=== PATIENT | female | born 2000 | race Caucasian/White ===

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

== ENCOUNTER 2021-06-27 17:06 | Emergency (ER) | payer SELFPAY ==
--- NOTE | 2021-06-27 18:15 | XR_ITS ---
PROCEDURE INFORMATION: Exam: XR Chest Exam date and time: 06/27/2021 6:15 PM Age: 20 years old Clinical indication: Cough and other: Congestion; Additional info: Chest congestion TECHNIQUE: Imaging protocol: XR of the chest. Views: 2 views. COMPARISON: CR CXR CHEST(2 VIEWS-NOT PORTABLE) 03/30/2016 8:16 PM FINDINGS: Lungs: Unremarkable. No consolidation. Pleural spaces: Unremarkable. No pleural effusion. No pneumothorax. Heart/Mediastinum: Unremarkable. No cardiomegaly. Bones/joints: Unremarkable. IMPRESSION: No acute findings.
[2021-06-27 18:25] VITALS: BP 119/88; PULSE 89; RESP 19; TEMP 37.1; O2SAT 99; BMI 15.0
--- NOTE | 2021-06-27 18:47 | HMH.EDUTC ---
[facility] [place] Clinical Impression: Strep throat Acute bronchitis Qualifiers: Bronchitis organism: unspecified organism Qualified Code(s): J20.9 - Acute bronchitis, unspecified Disposition: Home, Self-Care Condition on Discharge: Good Instructions: Acute Bronchitis, DI for Acute Bronchitis Additional Instructions: Drink plenty of fluids. Take tylenol or ibuprofen for pain or fever. Take the medications as directed. Follow up with your regular doctor. GO TO THE ER FOR ANY WORSENING SYMPTOMS The cough medication (promethazine dm) will make you drowsy, so don't drive or operate heavy machinery after taking it. Prescriptions: Promethazine/Dextromethorphan [Promethazine-Dm Syrup] 5 ml PO Q6HP PRN #240 ml PRN Reason: Cough Transmission Status: Received by [facility] #[id number] Cefdinir [Cefdinir 250mg/5ml Oral Susp] 250 mg PO BID 10 Days #100 ml Transmission Status: Received by [facility] #[id number] predniSONE [Prednisone 20mg Tab] 20 mg PO BID 5 Days #5 tab Transmission Status: Received by [facility] #[id number] Referrals: Crow Rodriguez [Primary Care Provider] - Time of Disposition: 19:42 Medical Decision Making - Medical Records Medical records reviewed: No: I reviewed the patient's medical records. - Freddy Inquiry Pt receiving controlled substance: No Vital Signs: 06/27/21 18:25 06/27/21 19:43 Temperature 98.7 F 98.7 F Temperature Source Oral Pulse Rate 89 Pulse Rate [Right Brachial] 89 Respiratory Rate 19 19 Blood Pressure 119/88 Blood Pressure [Right Arm] 119/88 Blood Pressure Mean [Right Arm] 98 Blood Pressure Source [Right Arm] Automatic Cuff Blood Pressure Position [Right Arm] Sitting 02 Sat by Pulse Oximetry 99 Oxygen Delivery Method Room Air - Lab Data Lab results reviewed: Yes: I reviewed the patient's lab results. Orders (Tests/Meds): ED MEDICATIONS Discontinued Medications Generic Name Dose Route Start Last Admin Trade Name Freq PRN Reason Stop Dose Admin Ceftriaxone Sodium 1 gm 06/27/21 19:33 06/27/21 19:40 Ceftriaxone 1gm Vial IM 06/27/21 19:34 1 gm ONCE ONE Administration Lidocaine HCl 0 ml 06/27/21 19:33 06/27/21 19:40 Lidocaine 1% 5ml Pf Vial IM 06/27/21 19:34 2 ml ONCE ONE Administration [facility] [place] - General Stated complaint: possible pneumonia Time Seen by Provider: 06/27/21 18:47 Mode of Arrival: Ambulatory Source of Information: Patient Limitations: No Limitations Description of Symptoms (Recalled from Triage Doc. by RN): PATIENT C/O RIB PAIN, COUGH, SOA, AND CONGESTION. REPORTS SHE WAS SEEN WEDNESDAY BUT COUGH IS GETTING WORSE HEENT Symptoms (Recalled from RN notes): No Resp Symptoms (Recalled from RN notes): Yes Skin Symptoms (Recalled from RN notes): No MS Symptoms (Recalled from RN notes): No Functional Status (Recalled from RN notes): WNL - History of Present Illness Provider Complaint: She is back to be rechecked. She was here 4 days ago and diagnosed with strep throat and started on amoxicillin. Since then her sore throat has got better, but she has began to cough and have chest tightness. - Related Data Home Medications Medication Instructions Recorded Confirmed Ethinyl Estradiol/Drospirenone 1 tab PO DAILY 08/22/19 08/22/19 [Drospirenone-Ee 3-0.02 mg Tab] Previous Rx's Medication Instructions Recorded Azithromycin [Z-Ek 250mg Tab*] 250 mg PO UD DOSE PK #6 tab 08/23/19 Ondansetron [Zofran 4mg ODT] 4 mg PO Q8HP PRN #10 tab.rapdis 08/23/19 Oseltamivir Phosphate [Tamiflu 75 mg PO BID #10 cap 08/23/19 75mg Capsule] Cefdinir [Cefdinir 250mg/5ml Oral 250 mg PO BID 10 Days #100 ml 06/27/21 Susp] Promethazine/Dextromethorphan 5 ml PO Q6HP PRN #240 ml 06/27/21 [Promethazine-Dm Syrup] predniSONE [Prednisone 20mg 20 mg PO BID 5 Days #5 tab 06/27/21 Tab] Allergies Allergy/AdvReac Type Severity Reaction Status Date / Time No Known Al
[2021-06-27 19:43] VITALS: BP 119/88; PULSE 89; RESP 19; TEMP 37.1; O2SAT 99
== END 2021-06-27 19:51 | disposition home or self-care (01) ==
PROVIDERS: Emergency Provider Nurse Practitioner Family; PCP Pediatrics
DX: J02.0 Streptococcal pharyngitis (principal); J20.9 Acute bronchitis, unspecified
CPT/HCPCS: 71046; 96372; 99202; G0463

== ENCOUNTER 2021-07-28 14:03 | Emergency (ER) | payer SELFPAY ==
[2021-07-28 15:35] VITALS: BP 119/71; PULSE 73; RESP 20; TEMP 37; O2SAT 100; BMI 16.4
[2021-07-28 15:57] LABS: UTC Influenza A Antigen Positive (Negative); UTC Influenza B Antigen Negative (Negative)
[2021-07-28 15:58] LABS: UTC Strep Screen (Rapid) Negative (Negative)
--- NOTE | 2021-07-28 16:02 | HMH.EDUTC ---
[facility] – [place] Disposition Clinical Impression: Influenza A Disposition: Home, Self-Care Condition on Discharge: Good Instructions: DI for Influenza -- Adult Additional Instructions: Drink plenty of fluids. Take tylenol or ibuprofen for pain or fever. Take the medications as directed. Follow up with your regular doctor. GO TO THE ER FOR ANY WORSENING SYMPTOMS The cough medication (promethazine dm) will make you drowsy, so don't drive or operate heavy machinery after taking it. Prescriptions: Brompheniramine/Pseudoephed/Dm [Bromfed Dm Cough Syrup] 5 ml PO Q6HP PRN #240 ml PRN Reason: Cough Transmission Status: Pending to [facility] # Ondansetron [Zofran 4mg ODT] 4 mg PO Q8HP PRN #20 tab PRN Reason: Nausea Transmission Status: Pending to [facility] # Oseltamivir Phosphate [Tamiflu 75mg Capsule] 75 mg PO BID #10 cap Transmission Status: Pending to [facility] # Referrals: Crow Rodriguez [Primary Care Provider] - Forms: Work/School Release Time of Disposition: 16:28 Medical Decision Making - Medical Records Medical records reviewed: No: I reviewed the patient's medical records. - Freddy Inquiry Pt receiving controlled substance: No Vital Signs: 07/28/21 15:35 Temperature 98.6 F Temperature Source Oral Pulse Rate [Left Brachial] 73 Respiratory Rate 20 Blood Pressure [Left Arm] 119/71 Blood Pressure Mean [Left Arm] 87 Blood Pressure Source [Left Arm] Automatic Cuff Blood Pressure Position [Left Arm] Sitting 02 Sat by Pulse Oximetry 100 Oxygen Delivery Method Room Air - Lab Data Lab results reviewed: Yes: I reviewed the patient's lab results. Lab Results 07/28/21 15:36: Strep Scn [facility] Negative 07/28/21 15:37: Influenza Type A Ag Positive A, Influenza Type B Ag Negative Orders (Tests/Meds): ORDERS Category Date Time Status Strep Screen Confirmation Routine Micro 07/28/21 15:36 Received [facility] [place] HPI - General Stated complaint: flu exposure/symptoms Time Seen by Provider: 07/28/21 16:03 Mode of Arrival: Ambulatory Source of Information: Patient Limitations: No Limitations Description of Symptoms (Recalled from Triage Doc. by RN): PATIENT C/O CHILLS, BODY ACHES, SORE THROAT, NAUSEA, VOMITING, DIARRHEA, CONGESTION AND FEVER SINCE YESTERDAY HEENT Symptoms (Recalled from RN notes): Yes Resp Symptoms (Recalled from RN notes): Yes Skin Symptoms (Recalled from RN notes): No MS Symptoms (Recalled from RN notes): No Functional Status (Recalled from RN notes): WNL - History of Present Illness Provider Complaint: She states that started feeling bad on Wednesday. She has had chilling, cough, chest congestion, scratchy sore throat and she has felt very bad. She denies shortness of breath. - Related Data Previous Rx's Medication Instructions Recorded Brompheniramine/Pseudoephed/Dm 5 ml PO Q6HP PRN #240 ml 07/28/21 [Bromfed Dm Cough Syrup] Ondansetron [Zofran 4mg ODT] 4 mg PO Q8HP PRN #20 tab 07/28/21 Oseltamivir Phosphate [Tamiflu 75 mg PO BID #10 cap 07/28/21 75mg Capsule] Allergies Allergy/AdvReac Type Severity Reaction Status Date / Time No Known Allergies Allergy Verified 08/22/19 20:27 - Worker's Comp Is this a Worker's Comp case?: No [facility] History - Hepatitis A Screen Drug use history?: No High risk sexual behaviors?: No History of sexually transmitted infection?: No Currently employed?: No Childcare worker?: No Do you have indoor plumbing?: Yes Do you have electricity?: Yes Attestation statement:: This patient has been screened for Hepatitis A risk factors. I have reviewed the patient's past medical history: Yes Laterality Cases: Bilateral: Tonsillectomy - Social History Alcohol Intake: never Occupational Status: student ROS Obtained: Yes All systems reviewed & no additional complaints - Constitutional Constitutional: Reports as per HPI - Eyes Eyes: Denies eye disc
[2021-07-28 16:29] VITALS: BP 119/71; PULSE 73; RESP 20; TEMP 37; O2SAT 100
== END 2021-07-28 16:30 | disposition home or self-care (01) ==
PROVIDERS: Emergency Provider Nurse Practitioner Family; PCP Pediatrics
DX: J10.1 Influenza due to other identified influenza virus with other respiratory manifestations (principal)
CPT/HCPCS: 87804; 87880; 99203; G0463

== ENCOUNTER → 2021-08-06 09:32 | Outpatient (CLI) | payer SELFPAY | LOC: HMH.CTC 09:33 | PROVIDERS: Visit Provider Nurse Practitioner | DX: Z20.822 Contact with and (suspected) exposure to COVID-19 (principal) | CPT/HCPCS: C9803; U0003; U0005 ==

== ENCOUNTER → 2021-08-11 14:43 | Outpatient (CLI) | payer OTHER, SELFPAY | PROVIDERS: Visit Provider Nurse Practitioner | DX: Z20.822 Contact with and (suspected) exposure to COVID-19 (principal) | CPT/HCPCS: C9803; U0003; U0005 ==

== ENCOUNTER → 2021-10-21 15:30 | Outpatient (CLI) | payer SELFPAY | LOC: RT 15:31 | PROVIDERS: PCP Nurse Practitioner Family; Visit Provider Nurse Practitioner Family | DX: R42 Dizziness and giddiness (principal) | CPT/HCPCS: 93225; 93226 ==

== ENCOUNTER 2021-12-09 18:53 | Emergency (ER) | payer SELFPAY ==
[2021-12-09 19:04] VITALS: BP 122/87; PULSE 99; RESP 16; TEMP 37.1; O2SAT 100; BMI 16.4
--- NOTE | 2021-12-09 19:08 | HMH.EDGENADL ---
ED Disposition Clinical Impression: Left flank pain Sinusitis Qualifiers: Sinusitis location: maxillary Chronicity: acute Recurrence: non-recurrent Qualified Code(s): J01.00 - Acute maxillary sinusitis, unspecified Disposition: Home, Self-Care Condition on Discharge: Good Instructions: Sinusitis, DI for Flank Pain Additional Instructions: folow up PCP as needed, return here for worse Prescriptions: Cefdinir [Omnicef 300mg Capsule] 300 mg PO BID #20 cap Transmission Status: Received by [facility] #[id number] Referrals: Provider,Referral, [Primary Care Provider] - - Critical Care Critical Care Time: No Attestation: On 12/09/21, the high probability of a clinically significant, sudden or life threatening deterioration of the following system(s) required my full and direct attention, intervention and personal management. The time I documented below is in addition to time spent performing reported procedures but includes the following listed in this critical care notation. Medical Decision Making - Medical Records Medical records reviewed: Yes: I reviewed the patient's medical records. - Freddy Inquiry Pt receiving controlled substance: No Vital Signs: 12/09/21 19:04 Temperature 98.7 F Temperature Source Oral Pulse Rate [Left Radial] 99 H Respiratory Rate 16 Blood Pressure [Right Arm] 122/87 Blood Pressure Mean [Right Arm] 98 Blood Pressure Source [Right Arm] Automatic Cuff Blood Pressure Position [Right Arm] Sitting 02 Sat by Pulse Oximetry 100 Oxygen Delivery Method Room Air - Lab Data Lab Results 12/09/21 19:13: Urine Color Yellow, Urine Appearance Clear, Urine pH 5.5, Ur Specific [place] 1.025, Urine Protein Negative, Urine Glucose (UA) Negative, Urine Ketones Negative, Urine Blood Negative, Urine Nitrate Negative, Urine Bilirubin Negative, Urine Urobilinogen 0.2, Ur Leukocyte Esterase Negative, Urine RBC None, Urine WBC Occasional, Ur Squamous Epith Cells 3-5, Urine Bacteria Trace 12/09/21 19:13: Urine HCG, Qual Negative General Adult HPI - General Stated complaint: Fever,Sore throat,Stomach Pressure Time Seen by Provider: 12/09/21 19:08 - History of Present Illness HPI narrative: sore throat, congestion, sinus pain, also left flank pain this am, better now lnmp>4wks ago Onset (ago): day(s) Radiation: non-radiation Severity: moderate Quality: aching Consistency: constant, intermittent Exacerbating factors: none Associated symptoms: denies other symptoms - Related Data Previous Rx's Medication Instructions Recorded Brompheniramine/Pseudoephed/Dm 5 ml PO Q6HP PRN #240 ml 07/28/21 [Bromfed Dm Cough Syrup] Ondansetron [Zofran 4mg ODT] 4 mg PO Q8HP PRN #20 tab 07/28/21 Oseltamivir Phosphate [Tamiflu 75 mg PO BID #10 cap 07/28/21 75mg Capsule] Cefdinir [Omnicef 300mg Capsule] 300 mg PO BID #20 cap 12/09/21 Allergies Allergy/AdvReac Type Severity Reaction Status Date / Time No Known Allergies Allergy Verified 08/22/19 20:27 [facility] History - Hepatitis A Screen Attestation statement:: This patient has been screened for Hepatitis A risk factors. Laterality Cases: Bilateral: Tonsillectomy - Social History Alcohol Intake: never Occupational Status: student ROS Obtained: Yes All systems reviewed & no additional complaints Physical Exam - General General appearance: alert, in no apparent distress - Head Head exam: atraumatic, normocephalic - Eye Eye exam: Present: normal appearance, PERRL, EOMI - ENT ENT exam: Present: normal exam, normal oropharynx, mucous membranes moist - Neck Neck exam: Present: normal inspection, full ROM - Chest Chest inspection: Present: normal inspection, symmetric chest wall rise - Respiratory Respiratory exam: Present: normal lung sounds bilaterally. Absent: respiratory distress, wheezes - Cardiovascular Cardiovascular exam: Present: regular rate, normal rhythm. Absent: tachycardia -
--- NOTE | 2021-12-09 19:17 | PC.NURSE ---
URINE COLLECTED AND SENT TO LAB. NO ACUTE DISTRESS NOTED.
[2021-12-09 19:18] LABS: Microscopic, Urine URINE MICROSCOPIC (MICROSCOPIC)
[2021-12-09 19:31] LABS: Appearance,Urine CLEAR (Clear); Bilirubin,Urine Negative (Negative); Blood, Urine Negative (Negative); Color,Urine YELLOW (Yellow); Glucose,Urine (UA) Negative (Negative); Ketones,Urine Negative (Negative); Leukocyte Esterase,Urine Negative (Negative); Nitrate,Urine Negative (Negative); PH,Urine 5.5 (5.0-8.5); Protein,Urine Negative (Negative); Specific Gravity, Urine 1.025 (1.005-1.030); Urine Pregnancy, HCG Qual. Negative (Negative); Urobilinogen,Urine 0.2 EU/dl (0.2)
[2021-12-09 19:57] LABS: Bacteria,Urine Trace /lpf; WBC,Urine Occasional #/hpf (0-3)
[2021-12-09 20:06] VITALS: BP 124/78; PULSE 89; RESP 16; TEMP 37.1; O2SAT 100
== END 2021-12-09 20:13 | disposition home or self-care (01) ==
PROVIDERS: Emergency Provider Emergency Medicine
DX: M54.9 Dorsalgia, unspecified (principal); J01.00 Acute maxillary sinusitis, unspecified
CPT/HCPCS: 81001; 81025; 99282

== ENCOUNTER 2022-07-03 11:55 | Emergency (ER) | payer SELFPAY ==
[2022-07-03 12:05] VITALS: BP 116/70; PULSE 74; RESP 19; O2SAT 100; BMI 17.9
--- NOTE | 2022-07-03 12:18 | EXP.UTC ---
Discharge Plan Disposition Patient Disposition: Home, Self-Care Condition: Good Prescriptions Prescriptions: New prednisone [prednisone] 20 mg tablet 20 mg PO BID 5 Days Qty: 10 0RF ondansetron 8 mg Tablet,Disintegrating 8 mg PO TID PRN (Reason: Nausea) Qty: 30 0RF bljfybpwaptjjfj-ecvhnpkcr-SC [Bromfed DM] 2-30-10 mg/5 mL Syrup 5 ml PO Q4H PRN (Reason: Cough) Qty: 120 0RF No Action oseltamivir 75 MG capsule 75 mg PO BID Qty: 10 0RF sighjtuhohhkoox-veojovgod-NR 118 ML syrup 5 ml PO Q6HP PRN (Reason: Cough) Qty: 240 0RF ondansetron 4 MG tablet,disintegrating 4 mg PO Q8HP PRN (Reason: Nausea) Qty: 20 0RF cefdinir 300 MG capsule 300 mg PO BID Qty: 20 0RF Referrals Follow up/Referrals: Crow Rodriguez [Primary Care Provider] - See instructions Clinical Impressions Clinical Impression: Acute viral syndrome Instructions Patient Instructions: DI for Viral Upper Respiratory Infection -- Adult Discharge ED Provider: Dyan Cohn [facility] [place] General Stated complaint: Sore throat, diarreah, vomitting, bodyaches Time Seen by Provider: 07/03/22 12:19 History of Present Illness Provider Complaint: 1 week history of sore throat, losing voice, congestion, cough, body aches, vomiting and diarrhea. No fever. Onset (ago): week(s) (1) Relieving factors: none Exacerbating factors: none Treatments prior to arrival: none Related Data Previous Rx's Medication Instructions Recorded buenyivbvnwsfei-ozckitxljmqtofw-IG 5 ml PO Q6HP PRN Cough #240 mL 07/28/21 2 mg-30 mg-10 mg/5 mL oral syrup ondansetron 4 mg disintegrating 4 mg PO Q8HP PRN Nausea #20 tabs 07/28/21 tablet oseltamivir 75 mg capsule 75 mg PO BID #10 caps 07/28/21 cefdinir 300 mg capsule 300 mg PO BID #20 caps 12/09/21 wurfkiqspsrjpmb-hbnnpfexxfzkpuc-EB 5 ml PO Q4H PRN Cough #120 mL 07/03/22 2 mg-30 mg-10 mg/5 mL oral syrup (Bromfed DM) ondansetron 8 mg disintegrating 8 mg PO TID PRN Nausea #30 tabs 07/03/22 tablet prednisone 20 mg tablet 20 mg PO BID 5 days #10 tabs 07/03/22 Allergies Allergy/AdvReac Type Severity Reaction Status Date / Time No Known Allergies Allergy Verified 08/22/19 20:27 [facility] Disclaimer: The information contained in this section may have been updated after the patient was seen, as this information can be updated by other users. Surgical History (Updated 07/03/22 @ 12:30 by Dayanara Jorgensen RN) History of tonsillectomy Social History Smoking Status: Smoker, status unknown alcohol intake: never current occupational status: student Travel in the last 8 weeks: None ROS Obtained: Yes All systems reviewed & no additional complaints except as documented Constitutional Constitutional: Reports headache(s) and Reports malaise ENT Ears, Nose, Mouth, and Throat: Reports headache(s), Reports nasal congestion and Reports sore throat Respiratory Respiratory: Reports cough Gastrointestinal Gastrointestingal: Reports diarrhea and vomiting Neurologic Neurologic: Reports headache(s) Physical Exam General General appearance: alert and in no apparent distress Head Head exam: atraumatic, normocephalic and normal inspection Eye Eye exam: Present normal appearance, PERRL and EOMI ENT ENT exam: Present normal exam, normal oropharynx, mucous membranes moist, TM's normal bilaterally and normal external ear exam Neck Neck exam: Present normal inspection, full ROM and trachea midline; Absent meningismus or lymphadenopathy Chest Chest inspection: Present normal inspection and symmetric chest wall rise; Absent tenderness Respiratory Respiratory exam: Present normal lung sounds bilaterally; Absent respiratory distress Cardiovascular Cardiovascular exam: Present regular rate and normal rhythm; Absent JVD Abdominal Exam Abdominal exam: Present soft and normal bowel sounds; Absent distention, tenderness or guarding Extremities Exam Extremities exam: Present normal inspect
[2022-07-03 12:23] LABS: UTC Strep Screen (Rapid) Negative (Negative)
[2022-07-03 12:53] VITALS: BP 116/70; PULSE 74; RESP 19; TEMP 36.7; O2SAT 100
== END 2022-07-03 12:25 | disposition home or self-care (01) ==
PROVIDERS: Emergency Provider Physician Assistant; PCP Pediatrics
DX: B34.9 Viral infection, unspecified (principal)
CPT/HCPCS: 87275; 87276; 87880; 99212; G0463

== ENCOUNTER 2022-09-10 17:55 | Emergency (ER) | payer SELFPAY ==
[2022-09-10 18:10] VITALS: BP 130/82; PULSE 88; RESP 20; TEMP 36.8; O2SAT 100; BMI 17.6
--- NOTE | 2022-09-10 18:20 | EXP.UTC ---
Discharge Plan Disposition Patient Disposition: Home, Self-Care Condition: Good Prescriptions Prescriptions: No Action prednisone [prednisone] 20 mg tablet 20 mg PO BID 5 Days Qty: 10 0RF ondansetron 8 mg Tablet,Disintegrating 8 mg PO TID PRN (Reason: Nausea) Qty: 30 0RF oafefikamfysniy-zcdeadejm-VC [Bromfed DM] 2-30-10 mg/5 mL Syrup 5 ml PO Q4H PRN (Reason: Cough) Qty: 120 0RF oseltamivir 75 MG capsule 75 mg PO BID Qty: 10 0RF jonthlzhjpzfzer-lgblblejo-VG 118 ML syrup 5 ml PO Q6HP PRN (Reason: Cough) Qty: 240 0RF ondansetron 4 MG tablet,disintegrating 4 mg PO Q8HP PRN (Reason: Nausea) Qty: 20 0RF cefdinir 300 MG capsule 300 mg PO BID Qty: 20 0RF Referrals Follow up/Referrals: Crow Rodriguez [Primary Care Provider] - See instructions Activity Restrictions/Add. Instructions Additional Instructions/Restrictions: Follow up with Family Doctor or OBGYN if you do not start your menstrual cycle or if you continue to have symptoms Return if needed Clinical Impressions Clinical Impression: Encounter for test with result negative Stand Alone Forms Stand Alone Forms: Work/School Release Discharge ED Provider: Nikki Cowan [facility] General Stated complaint: cramping, Mode of Arrival: Ambulatory Source of Information: Patient Limitations: No Limitations Time Seen by Provider: 09/10/22 18:21 Description of Symptoms (Recalled from Triage Doc. by RN): PATIENT REPORTS LIGHT BLEEDING, CRAMPING, AND HEADACHE SINCE WEDNESDAY. REQUESTING TEST HEENT Symptoms (Recalled from RN notes): No Resp Symptoms (Recalled from RN notes): No Skin Symptoms (Recalled from RN notes): No MS Symptoms (Recalled from RN notes): No Functional Status (Recalled from RN notes): WNL History of Present Illness Provider Complaint: Patient states that she should have been starting her period today but on Wednesday she had a little cramping and light bleeding and it stopped then the same on Wednesday and she has taken 2 home tests and thinks she may have seen a faint line so she came in here today requesting test Related Data Previous Rx's Medication Instructions Recorded smxbdzibdxcwonw-mamehtwxwxzvtym-AQ 5 ml PO Q6HP PRN Cough #240 mL 07/28/21 2 mg-30 mg-10 mg/5 mL oral syrup ondansetron 4 mg disintegrating 4 mg PO Q8HP PRN Nausea #20 tabs 07/28/21 tablet oseltamivir 75 mg capsule 75 mg PO BID #10 caps 07/28/21 cefdinir 300 mg capsule 300 mg PO BID #20 caps 12/09/21 lixgwosdtbznmnr-ecplmikabhzukca-HQ 5 ml PO Q4H PRN Cough #120 mL 07/03/22 2 mg-30 mg-10 mg/5 mL oral syrup (Bromfed DM) ondansetron 8 mg disintegrating 8 mg PO TID PRN Nausea #30 tabs 07/03/22 tablet prednisone 20 mg tablet 20 mg PO BID 5 days #10 tabs 07/03/22 Allergies Allergy/AdvReac Type Severity Reaction Status Date / Time No Known Allergies Allergy Verified 08/22/19 20:27 Worker's Comp Is this a Worker's Comp case?: No [facility] Disclaimer: The information contained in this section may have been updated after the patient was seen, as this information can be updated by other users. Surgical History (Updated 07/03/22 @ 12:30 by Dayanara Jorgensen RN) History of tonsillectomy Social History (Updated 07/03/22 @ 13:14 by CARRIE Veloz) Smoking Status: Smoker, status unknown alcohol intake: never current occupational status: student Travel in the last 8 weeks: None ROS Obtained: Yes All systems reviewed & no additional complaints except as documented and Yes Systems reviewed as appropriate & no additional complaints except as documented Constitutional Constitutional: Reports system reviewed and no additional complaints, except as documented and Reports as per HPI ENT Ears, Nose, Mouth, and Throat: Reports system reviewed and no additional complaints, except as documented and Reports as per HPI Cardiovascular Cardiovascular: Reports system reviewed and n
[2022-09-10 19:00] LABS: HCG Qualitative, Serum Negative (Negative)
[2022-09-10 19:05] VITALS: BP 130/82; PULSE 88; RESP 20; TEMP 36.8; O2SAT 100
[2022-09-10 19:07] LABS: UTC Pregnancy Test, Urine Negative (Negative)
== END 2022-09-10 19:07 | disposition home or self-care (01) ==
PROVIDERS: Emergency Provider Nurse Practitioner; PCP Pediatrics
DX: Z32.02 Encounter for pregnancy test, result negative (principal)
CPT/HCPCS: 81025; 84703; 99212; G0463

== ENCOUNTER 2022-11-21 13:20 | Emergency (ER) | payer SELFPAY ==
[2022-11-21 13:21] VITALS: BP 126/91; PULSE 83; RESP 17; TEMP 36.9; O2SAT 100; BMI 16.9
[2022-11-21 13:30] VITALS: BP 110/73; PULSE 83; O2SAT 100
[2022-11-21 13:31] LABS: Microscopic, Urine URINE MICROSCOPIC (MICROSCOPIC)
[2022-11-21 13:32] LABS: Appearance,Urine CLEAR (Clear); Bilirubin,Urine Negative (Negative); Blood, Urine Negative (Negative); Color,Urine YELLOW (Yellow); Glucose,Urine (UA) Negative (Negative); Ketones,Urine Negative (Negative); Leukocyte Esterase,Urine Negative (Negative); Nitrate,Urine Negative (Negative); Protein,Urine Negative (Negative); Urobilinogen,Urine 0.2 EU/dl (0.2)
--- NOTE | 2022-11-21 13:39 | PC.NURSE ---
DR FARRELL AT BEDSIDE
--- NOTE | 2022-11-21 13:41 | PC.NURSE ---
PT MEDICATED PER EMAR. WARM BLANKET PROVIDED
[2022-11-21 13:42] LABS: Bacteria,Urine Trace /lpf; Squamous Epithelial Cell,Urine Occasional #/hpf (0-5)
[2022-11-21 13:46] LABS: Basophils % 0.4 % (0.1-2.0); Eosinophils # 0.1 K/mm3 (0.0-0.4); Eosinophils % 1.1 % (0.1-12.0); Hematocrit 39.8 % (37.0-47.0); Hemoglobin 13.2 g/dL (12.2-16.2); Lymphocytes # 1.8 K/mm3 (0.7-4.5); Lymphocytes % 22.7 % (10-50); Mean Corpuscular HGB Conc 33.1 g/dL (31.8-35.4); Mean Corpuscular Hemoglobin 27.9 pg (27.0-31.2); Mean Corpuscular Volume 84.3 fl (81-99); Mean Platelet Volume 7.8 fl (7.4-10.4); Monocytes # 0.5 K/mm3 (0.1-1.0); Monocytes % 5.6 % (1.7-9.3); Neutrophils # 5.6 K/mm3 (1.8-7.8); Neutrophils % 70.1 % (37.0-80.0); Platelet Count 276 K/mm3 (142-424); Red Blood Count 4.72 M/mm3 (4.20-5.40); Red Cell Distribution Width 14.5 % (11.5-17.5)
[2022-11-21 13:53] LABS: Chloride 100 mmol/L (98-107)
[2022-11-21 13:54] LABS: Potassium 4.2 mmoL/L (3.5-5.1); Sodium 139 mmol/L (136-145)
[2022-11-21 13:56] LABS: Alanine Aminotransferase 19 U/L (12-78); Alkaline Phosphatase 77 U/L (38-126); Anion Gap 18.2 mEq/L (5-15); Aspartate Amino Transferase 32 U/L (14-36); Bilirubin,Total 0.5 mg/dl (0.2-1.3); Blood Urea Nitrogen 12 mg/dl (7-17); Carbon Dioxide 25 mmol/L (22.0-30.0); Creatinine Clearance Estimated 72 mL/min (50-200); Estimated Glomerular Filt Rate 91 ml/min (>60); GFR (African American) 111 ML/MIN (>60)
[2022-11-21 13:57] LABS: Albumin Level 4.5 g/dl (3.5-5.0); Albumin/Globulin Ratio 1.4 (1.1-1.8); Calcium 8.6 mg/dl (8.4-10.2); Globulin 3.3 g/dL (1.3-3.2); Glucose 96 mg/dl (74-100); HCG Qualitative, Serum Negative (Negative); Total Protein,Serum 7.8 g/dl (6.3-8.2)
--- NOTE | 2022-11-21 14:05 | PC.NURSE ---
DR FARRELL AT BEDSIDE TO UPDATE PT
--- NOTE | 2022-11-21 14:12 | HMH.EDGENADL ---
Discharge Plan Disposition Patient Disposition: Home, Self-Care Condition: Good Prescriptions Prescriptions: New polyethylene glycol 3350 [Miralax] 17 gram/dose powder 17 g PO DAILY Qty: 510 0RF sennosides [senna] 8.6 mg tablet 8.6 mg PO DAILY Qty: 30 0RF Referrals Follow up/Referrals: Grace Vivar APRN [Primary Care Provider] - See instructions Activity Restrictions/Add. Instructions Additional Instructions/Restrictions: You were evaluated in the emergency department today. At this time, your labs are reassuring. We feel that you most likely have constipation. Without imaging, we cannot exclude other causes of abdominal pain, such as appendicitis or other issues. Should your symptoms worsen or you develop fevers, intractable vomiting, or other concerns, please return to the emergency department. Follow-up with your primary care provider over the next 3 days. 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 Clinical Impressions Clinical Impression: Abdominal pain Qualifiers: Abdominal location: lower abdomen, unspecified Qualified Code(s): R10.30 - Lower abdominal pain, unspecified Constipation Qualifiers: Constipation type: unspecified constipation type Qualified Code(s): K59.00 - Constipation, unspecified Instructions Patient Instructions: DI for Constipation, DI for Acute Abdominal Pain Discharge ED Provider: Ana María Mcmahon General Adult HPI General Chief complaint: Abdominal Pain Stated complaint: Lower abd pain Time Seen by Provider: 11/21/22 13:23 Mode of Arrival: Ambulatory Source of Information: Patient Limitations: No Limitations Description of Symptoms (Recalled from ER Triage Doc. by RN): PT REPORTS INTERMITTENT LOWER ABDOMINAL PAIN SINCE LAST WEDNESDAY. URINARY FREQUENCY, PT DENIES N/V/D. LAST BM YESTERDAY. DENIES FEVER OR CHILLS. REPORTS PERIOD IS 2 DAYS LATE History of Present Illness HPI narrative: This patient is a 21-year-old female presenting to the emergency department for evaluation of over 1 week of lower abdominal discomfort. She states that it feels kind of like a cramping or pressure. It is not truly a pain. She states that she is concerned because she has had more vaginal discharge than usual and is late on her period. She is concerned she may be . She denies any foul-smelling discharge or concern for possible sexually transmitted infection. She declines STI testing at this time. She denies any fevers, chills, nausea, vomiting, or diarrhea. She does admit to constipation, stating that she has been having trouble having bowel movements. Her last bowel movement was yesterday and was very hard for her. She has still been eating and drinking fine. No other concerns noted at this time. Related Data Previous Rx's Medication Instructions Recorded polyethylene glycol 3350 17 17 g PO DAILY #510 grams 11/21/22 gram/dose oral powder (Miralax) sennosides 8.6 mg tablet (senna) 8.6 mg PO DAILY #30 tabs 11/21/22 Allergies Allergy/AdvReac Type Severity Reaction Status Date / Time No Known Allergies Allergy Verified 08/22/19 20:27 [facility] Disclaimer: The information contained in this section may have been updated after the patient was seen, as this information can be updated by other users. Surgical History History of tonsillectomy Social History Smoking Status: Never smoker alcohol intake: never current occupational status: student Travel in the last 8 weeks: None ROS Obtained: Yes All systems reviewed & no additional complaints except as documented 14 point review of systems obtained and negative except as mentioned in HPI. Physical Exam General General appearance: alert and in no apparent distress Head Head exam: atraumatic and normocephalic Eye Eye exam: Present normal appearance, PERRL and EOMI ENT E
[2022-11-21 14:23] VITALS: BP 103/69; PULSE 89; RESP 16; TEMP 36.6; O2SAT 98
== END 2022-11-21 14:25 | disposition home or self-care (01) ==
PROVIDERS: Emergency Provider Emergency Medicine; PCP Nurse Practitioner Family
DX: R10.30 Lower abdominal pain, unspecified (principal); K59.00 Constipation, unspecified
CPT/HCPCS: 80053; 81001; 84703; 85025; 99284; 99285

== ENCOUNTER 2023-01-28 09:18 | Emergency (ER) | payer SELFPAY ==
[2023-01-28 09:28] VITALS: BP 117/81; PULSE 78; RESP 16; TEMP 36.8; O2SAT 100; BMI 21.7
[2023-01-28 10:00] VITALS: BP 123/79; PULSE 78; O2SAT 100
--- NOTE | 2023-01-28 10:02 | PC.NURSE ---
pt ambulatory to restroom with assistance from tech, no complications
[2023-01-28 10:07] LABS: Basophils % 0.2 % (0.1-2.0); Eosinophils # 0.1 K/mm3 (0.0-0.4); Eosinophils % 1.1 % (0.1-12.0); Hematocrit 39.4 % (37.0-47.0); Hemoglobin 12.5 g/dL (12.2-16.2); Lymphocytes # 1.2 K/mm3 (0.7-4.5); Lymphocytes % 17.8 % (10-50); Mean Corpuscular HGB Conc 31.8 g/dL (31.8-35.4); Mean Corpuscular Hemoglobin 26.6 pg (27.0-31.2); Mean Corpuscular Volume 83.6 fl (81-99); Mean Platelet Volume 7.4 fl (7.4-10.4); Monocytes # 0.4 K/mm3 (0.1-1.0); Monocytes % 6.5 % (1.7-9.3); Neutrophils # 4.9 K/mm3 (1.8-7.8); Neutrophils % 74.4 % (37.0-80.0); Platelet Count 287 K/mm3 (142-424); Red Blood Count 4.71 M/mm3 (4.20-5.40); Red Cell Distribution Width 13.4 % (11.5-17.5); White Blood Count 6.6 K/mm3 (4.8-10.8)
--- NOTE | 2023-01-28 10:08 | PC.NURSE ---
UA sent to lab; pt hooked back up to monitor and reports no other needs at this time. Call clark within reach
[2023-01-28 10:11] LABS: Microscopic, Urine URINE MICROSCOPIC (MICROSCOPIC)
[2023-01-28 10:18] LABS: Appearance,Urine CLEAR (Clear); Bilirubin,Urine Negative (Negative); Blood, Urine 2+ (Negative); Color,Urine YELLOW (Yellow); Glucose,Urine (UA) Negative (Negative); Ketones,Urine Negative (Negative); Leukocyte Esterase,Urine Negative (Negative); Nitrate,Urine Negative (Negative); PH,Urine 7.5 (5.0-8.5); Protein,Urine Negative (Negative); Urobilinogen,Urine 0.2 EU/dl (0.2)
[2023-01-28 10:29] LABS: HCG Qualitative, Serum Negative (Negative)
[2023-01-28 10:30] VITALS: BP 124/77; PULSE 77; O2SAT 100
[2023-01-28 10:31] LABS: Chloride 107 mmol/L (98-107); Potassium 4.2 mmoL/L (3.5-5.1); Sodium 140 mmol/L (136-145)
[2023-01-28 10:34] LABS: Anion Gap 13.2 mEq/L (5-15); Blood Urea Nitrogen 6 mg/dl (7-17); Calcium 9.1 mg/dl (8.4-10.2); Carbon Dioxide 24 mmol/L (22.0-30.0); Creatinine Clearance Estimated 118 mL/min (50-200); Estimated Glomerular Filt Rate 126 ml/min (>60); GFR (African American) 153 ML/MIN (>60); Glucose 93 mg/dl (74-100)
[2023-01-28 11:00] VITALS: BP 115/70; PULSE 84; O2SAT 99
[2023-01-28 11:02] LABS: Bacteria,Urine Trace /lpf; WBC,Urine Occasional #/hpf (0-3)
--- NOTE | 2023-01-28 11:06 | US_ITS ---
PROCEDURE: US TRANSVAGINAL CLINICAL INDICATION: miscarriage COMPARISON: No exams were available for comparison FINDINGS: From her last menstrual period she is 4 weeks 4 days. UTERUS: 7cm x 4cmx 4cm with a combined endometrial thickness of 0.4 cm. There is no evidence of within the endometrial cavity. LEFT OVARY: [id number] with a volume of 6.1ml.There are multiple small follicles. RIGHT OVARY: 3cmx [id number] with a volume of 7.8ml. There are multiple small follicles. Both ovaries are seen and appear normal. Doppler flow to both ovaries are seen. There is no fluid in the cul-de-sac. IMPRESSION: 1. Anteverted uterus, normal in shape and size. 2. No evidence of an intrauterine . Endometrium is thin. 3. Both ovaries are seen and appear normal. They have multiple follicular cysts. No adnexal masses seen. 4. No fluid in the cul-de-sac. Dictated by: Trent Zuñiga MD 01/28/2023 12:40 Trent Zuñiga MD in OV 01/28/2023 12:40
[2023-01-28 11:30] VITALS: BP 109/76; PULSE 82; O2SAT 99
--- NOTE | 2023-01-28 12:12 | HMH.EDGENADL ---
Discharge Plan Disposition Patient Disposition: Home, Self-Care Condition: Good Chief Complaint: Vaginal Bleeding Prescriptions Prescriptions: No Action polyethylene glycol 3350 [Miralax] 17 gram/dose powder 17 g PO DAILY Qty: 510 0RF sennosides [senna] 8.6 mg tablet 8.6 mg PO DAILY Qty: 30 0RF Referrals Follow up/Referrals: Grace Vivar APRN [Primary Care Provider] - See instructions Activity Restrictions/Add. Instructions Additional Instructions/Restrictions: Motrin/Tylenol as needed. Follow-up PCP/gynecology. Return to the ER for fever, heavy bleeding Clinical Impressions Clinical Impression: Uterine cramping Discharge ED Provider: Savage Del Angel General Adult HPI General Chief complaint: Vaginal Bleeding Stated complaint: 4 weeks , abd pain, vag bleeding Time Seen by Provider: 01/28/23 09:39 Mode of Arrival: Ambulatory Source of Information: Patient Limitations: No Limitations Description of Symptoms (Recalled from ER Triage Doc. by RN): Presents via POV d/t intermittent lower abd cramps with vaginal bleeding since yesterday. Pt states she saw [facility] yesterday with diagnosis of miscarriage . . Approx. 4 weeks . History of Present Illness HPI narrative: 22yo F G2, P0010 evaluated after being told she was having a miscarriage yesterday at her [facility] opening appointment. Patient reports she is approximately 4 weeks . Complains of lower abdominal cramps and vaginal bleeding since yesterday. Reports previous miscarriage occurred prior to 4 weeks. Related Data Previous Rx's Medication Instructions Recorded polyethylene glycol 3350 17 17 g PO DAILY #510 grams 11/21/22 gram/dose oral powder (Miralax) sennosides 8.6 mg tablet (senna) 8.6 mg PO DAILY #30 tabs 11/21/22 Allergies Allergy/AdvReac Type Severity Reaction Status Date / Time No Known Allergies Allergy Verified 08/22/19 20:27 [facility] Disclaimer: The information contained in this section may have been updated after the patient was seen, as this information can be updated by other users. Surgical History History of tonsillectomy Social History Smoking Status: Never smoker alcohol intake: never current occupational status: student Travel in the last 8 weeks: None ROS Obtained: Yes Systems reviewed as appropriate & no additional complaints except as documented Physical Exam General General appearance: alert and in no apparent distress Head Head exam: atraumatic Eye Eye exam: Present PERRL ENT ENT exam: Present normal oropharynx Neck Neck exam: Present trachea midline Respiratory Respiratory exam: Present normal lung sounds bilaterally; Absent respiratory distress Cardiovascular Cardiovascular exam: Present regular rate, normal rhythm and normal heart sounds Abdominal Exam Abdominal exam: Present soft, tenderness (Diffuse) and normal bowel sounds; Absent distention Neurological Exam Neurological exam: Present alert and oriented X3 Psychiatric Psychiatric exam: Present normal affect Skin Skin exam: Present warm Medical Decision Making Medical Records Medical records reviewed: Yes I reviewed the patient's medical records. Freddy Inquiry Pt receiving controlled substance: No Vital Signs: 01/28/23 09:28 01/28/23 10:00 01/28/23 10:30 Temperature 98.2 F Temperature Source Oral Pulse Rate 78 77 Pulse Rate [Right] 78 Respiratory Rate 16 Blood Pressure 123/79 124/77 Blood Pressure [Right Arm] 117/81 Blood Pressure Mean 91 89 Blood Pressure Mean [Right Arm] 93 02 Sat by Pulse Oximetry 100 100 100 Oxygen Delivery Method Room Air 01/28/23 11:00 01/28/23 11:30 Temperature Temperature Source Pulse Rate 84 82 Pulse Rate [Right] Respiratory Rate Blood Pressure 115/70 109/76 L Blood Pressure [Right Arm] Blood Pressure Mean 82 87 Blo
[2023-01-28 12:29] VITALS: BP 104/74; PULSE 79; RESP 20; TEMP 36.8; O2SAT 97
== END 2023-01-28 12:30 | disposition home or self-care (01) ==
PROVIDERS: Emergency Provider Family Medicine; PCP Nurse Practitioner Family
DX: R10.2 Pelvic and perineal pain (principal); N93.9 Abnormal uterine and vaginal bleeding, unspecified
CPT/HCPCS: 36415; 76830; 80048; 81001; 84703; 85025; 86850; 99284; 99285

== ENCOUNTER 2023-04-07 09:48 | Emergency (ER) | payer SELFPAY ==
[2023-04-07 09:50] VITALS: BP 115/77; PULSE 101; RESP 16; TEMP 36.8; O2SAT 100; BMI 17.5
--- NOTE | 2023-04-07 10:07 | US_ITS ---
PROCEDURE INFORMATION: Exam: US Pelvis, Transvaginal Exam date and time: 04/07/2023 10:26 AM Age: 22 years old Clinical indication: Pelvic pain; Additional info: Sudden suprapubic pain, R/O torsion LABS AND CLINICAL REPORTS: Last menstrual period start date: 03/06/2023 TECHNIQUE: Imaging protocol: Real-time transvaginal pelvic ultrasound with image documentation. Transvaginal imaging was used for better evaluation of the endometrium, adnexa, and/or cervix. COMPARISON: US TRANSVAGINAL 01/28/2023 11:42 AM FINDINGS: Uterus: Uterus measures 7.4 cm x 5.4 cm x 4 cm. The endometrium is normal measuring 1 cm. Right ovary/adnexa: Right ovary measures 4.7 cm x 4 cm x 3 cm. A cyst measuring up to 3 cm is seen in the right ovary. Right ovarian volume is 30 mL. Left ovary/adnexa: Left ovary measures 2 cm x 2 cm x 2 cm. Left ovarian volume is 4.8 mL. Intraperitoneal space: Mild free fluid is seen in the cul-de-sac. IMPRESSION: 1. Right ovarian cyst measuring 3 cm is likely physiologic cyst. 2. Mild free fluid in the cul-de-sac.
--- NOTE | 2023-04-07 10:08 | HMH.EDGENADL ---
Discharge Plan Disposition Patient Disposition: Home, Self-Care Prescriptions Prescriptions: New nitrofurantoin monohyd/m-cryst 100 mg capsule 100 mg PO BID 5 Days Qty: 10 0RF Rx Instructions: must administer with a meal/food No Action polyethylene glycol 3350 [Miralax] 17 gram/dose powder 17 g PO DAILY Qty: 510 0RF sennosides [senna] 8.6 mg tablet 8.6 mg PO DAILY Qty: 30 0RF Referrals Follow up/Referrals: Grace Vivar APRN [Primary Care Provider] - See instructions Clinical Impressions Clinical Impression: Abdominal pain, suprapubic, Ovarian cyst rupture, Cystitis Instructions Patient Instructions: DI for Acute Abdominal Pain Discharge ED Provider: Vanda Peñaloza General Adult HPI General Chief complaint: Abdominal Pain Stated complaint: abd cramping, back pain, nausea possible Time Seen by Provider: 04/07/23 10:03 Mode of Arrival: Ambulatory Source of Information: Patient Limitations: No Limitations Description of Symptoms (Recalled from ER Triage Doc. by RN): Patient complaint of mid lower abdomen pain since yesterday. Complains of nausea and states that she may be . History of Present Illness HPI narrative: Patient is a 22-year-old female A1 presents today 1 day late for her period with sudden onset of suprapubic abdominal pain. This is not localized to 1 side. She denies any vaginal bleeding vaginal discharge diarrhea constipation loss of fluid loss of tissue contractions etc. She has no known history of ovarian cyst. States this pain began from 1 moment to the next and has been moderate to severe in nature. Denies any dysuria frequency urgency. States she has some lower back pain associate with this. Claims at last time she felt this way she had a miscarriage which she is concerned about again today. She did not have a test performed at home. Related Data Previous Rx's Medication Instructions Recorded polyethylene glycol 3350 17 17 g PO DAILY #510 grams 11/21/22 gram/dose oral powder (Miralax) sennosides 8.6 mg tablet (senna) 8.6 mg PO DAILY #30 tabs 11/21/22 nitrofurantoin 100 mg PO BID 5 days #10 caps 04/07/23 monohydrate/macrocrystals 100 mg capsule Allergies Allergy/AdvReac Type Severity Reaction Status Date / Time No Known Allergies Allergy Verified 08/22/19 20:[address] [facility] Disclaimer: The information contained in this section may have been updated after the patient was seen, as this information can be updated by other users. Surgical History History of tonsillectomy Social History Smoking Status: Never smoker alcohol intake: never current occupational status: student Travel in the last 8 weeks: None ROS Obtained: Yes All systems reviewed & no additional complaints except as documented Physical Exam General General appearance: alert Respiratory Respiratory exam: Present normal lung sounds bilaterally; Absent respiratory distress Cardiovascular Cardiovascular exam: Present regular rate; Absent tachycardia Abdominal Exam Abdominal exam: Present soft and tenderness (Suprapubic tenderness to palpation no rebound or guarding no masses) Neurological Exam Neurological exam: Present alert and oriented X3 Medical Decision Making Freddy Inquiry Pt receiving controlled substance: No Vital Signs: 04/07/23 09:50 Temperature 98.3 F Temperature Source Oral Pulse Rate [Radial] 101 H Respiratory Rate 16 Blood Pressure [Right Arm] 115/77 Blood Pressure Mean [Right Arm] 89 Blood Pressure Source [Right Arm] Automatic Cuff Blood Pressure Position [Right Arm] Sitting 02 Sat by Pulse Oximetry 100 Oxygen Delivery Method Room Air Lab Data Lab results reviewed: Yes I reviewed the patient's lab results. Lab Results 04/07/23 10:00: Urine Color Yellow, Urine Appearance Clear, Urine pH 6.0, Ur Speci
--- NOTE | 2023-04-07 10:16 | PC.NURSE ---
radiology aware of us
[2023-04-07 10:23] LABS: Microscopic, Urine URINE MICROSCOPIC (MICROSCOPIC)
[2023-04-07 10:26] LABS: Urine Pregnancy, HCG Qual. Negative (Negative)
[2023-04-07 10:28] LABS: Appearance,Urine CLEAR (Clear); Bilirubin,Urine Negative (Negative); Blood, Urine TRACE-I (Negative); Color,Urine YELLOW (Yellow); Glucose,Urine (UA) Negative (Negative); Ketones,Urine Negative (Negative); Leukocyte Esterase,Urine 2+ (Negative); Nitrate,Urine Negative (Negative); Protein,Urine Negative (Negative); Urobilinogen,Urine 0.2 EU/dl (0.2)
[2023-04-07 10:42] LABS: Bacteria,Urine 1+ /lpf; RBC,Urine Occasional #/hpf (0-3)
[2023-04-07 11:34] VITALS: BP 109/70; PULSE 92; RESP 20; TEMP 36.8; O2SAT 99
== END 2023-04-07 11:34 | disposition home or self-care (01) ==
PROVIDERS: Emergency Provider Student in an Organized Health Care Education/Training Program; PCP Nurse Practitioner Family
DX: N83.201 Unspecified ovarian cyst, right side (principal); R10.2 Pelvic and perineal pain
CPT/HCPCS: 76830; 81001; 81025; 87086; 96361; 96374; 99285; J0131

== ENCOUNTER → 2023-06-16 15:12 | Outpatient (CLI) | payer SELFPAY ==
[2023-06-16 16:07] LABS: HCG,Quantitative < 2 mIU/ml (0-5.42)
[2023-06-17 09:15] LABS: Progesterone 0.3 ng/mL (.)
== END ==
PROVIDERS: PCP Nurse Practitioner Family; Visit Provider Obstetrics & Gynecology
DX: N92.6 Irregular menstruation, unspecified (principal)
CPT/HCPCS: 36415; 84144; 84702

== ENCOUNTER 2023-06-21 09:36 | Emergency (ER) | payer SELFPAY ==
[2023-06-21 10:07] VITALS: BP 117/81; PULSE 77; RESP 16; TEMP 37; O2SAT 99; BMI 16.4
--- NOTE | 2023-06-21 10:32 | EXP.UTC ---
Discharge Plan Disposition Patient Disposition: Home, Self-Care Condition: Good Prescriptions Prescriptions: No Action polyethylene glycol 3350 [Miralax] 17 gram/dose powder 17 g PO DAILY Qty: 510 0RF sennosides [senna] 8.6 mg tablet 8.6 mg PO DAILY Qty: 30 0RF nitrofurantoin monohyd/m-cryst 100 mg capsule 100 mg PO BID 5 Days Qty: 10 0RF Rx Instructions: must administer with a meal/food Referrals Follow up/Referrals: Provider,Referral, [Primary Care Provider] - See instructions Activity Restrictions/Add. Instructions Additional Instructions/Restrictions: *Monitor Temp, Over the counter Motrin or Tylenol as directed/as needed Tylenol every 4 hours and Motrin every 6 hours (as long as your family doctor has told you that you can take it) for fever or pain. and straight to ER if unable to lower temp less than 101.0 after medication given *Warm salt water gargles may help to soothe the throat *Throat Lozenges? *Warm fluids like tea with honey may help to soothe the throat? *Sleep elevated *Humidifier/Vaporizer *Your throat swab was sent for culture. Those results are typically sent to your primary care. Be sure to follow up in 2-3 days with your family doctor/primary care physician if no improvement so they can review those result and treat if necessary. If you don?t have a primary care doctor, I recommend you get one but in the mean time, you will have to return to a walk in clinic Follow up IMMEDIATELY for new or worsening symptoms or no Noticeable improvement over the next 48-72 hours. 911 for difficulty breathing or swallowing Clinical Impressions Clinical Impression: Acute viral syndrome Instructions Patient Instructions: DI for Viral Syndrome Discharge ED Provider: Nikki Cowan [facility] HPI General Stated complaint: sore throat, diarrhea and chills Time Seen by Provider: 06/21/23 10:32 History of Present Illness Provider Complaint: Patient states that she woke up this morning with sore throat, nasal congestion and chills States that her throat hurts when she swallows and doesnt feel well States that she came in to get tested worried that she may have flu or strep throat States that she works at a [employer] and they have had alot of strep throat Related Data Previous Rx's Medication Instructions Recorded polyethylene glycol 3350 17 17 g PO DAILY #510 grams 11/21/22 gram/dose oral powder (Miralax) sennosides 8.6 mg tablet (senna) 8.6 mg PO DAILY #30 tabs 11/21/22 nitrofurantoin 100 mg PO BID 5 days #10 caps 04/07/23 monohydrate/macrocrystals 100 mg capsule Allergies Allergy/AdvReac Type Severity Reaction Status Date / Time No Known Allergies Allergy Verified 08/22/19 20:27 [facility] Disclaimer: The information contained in this section may have been updated after the patient was seen, as this information can be updated by other users. Surgical History History of tonsillectomy Social History Smoking Status: Never smoker alcohol intake: never current occupational status: student Travel in the last 8 weeks: None ROS Obtained: Yes All systems reviewed & no additional complaints except as documented and Yes Systems reviewed as appropriate & no additional complaints except as documented Constitutional Constitutional: Reports system reviewed and no additional complaints, except as documented, Reports as per HPI, Reports body ache and Reports chills ENT Ears, Nose, Mouth, and Throat: Reports system reviewed and no additional complaints, except as documented, Reports as per HPI, Reports nasal congestion, Reports nasal discharge and Reports sore throat Cardiovascular Cardiovascular: Reports system reviewed and no additional complaints, except as documented and Reports as per HPI Respiratory Respiratory: Reports system rev
[2023-06-21 10:47] LABS: UTC Strep Screen (Rapid) Negative (Negative)
[2023-06-21 10:48] LABS: UTC Influenza A Antigen Negative (Negative)
[2023-06-21 10:49] LABS: UTC Influenza B Antigen Negative (Negative)
[2023-06-21 10:55] VITALS: BP 117/81; PULSE 78; RESP 18; TEMP 37; O2SAT 99
== END 2023-06-21 10:55 | disposition home or self-care (01) ==
PROVIDERS: Emergency Provider Nurse Practitioner
DX: R07.0 Pain in throat (principal); R09.81 Nasal congestion; R68.83 Chills (without fever); R19.7 Diarrhea, unspecified; B34.9 Viral infection, unspecified
CPT/HCPCS: 87804; 87880; 99212; 99213; G0463

== ENCOUNTER 2023-06-23 05:55 | Emergency (ER) | payer SELFPAY ==
[2023-06-23 05:57] VITALS: BP 116/81; PULSE 107; RESP 16; TEMP 37; O2SAT 100; BMI 17.9
--- NOTE | 2023-06-23 06:02 | HMH.EDGENADL ---
Discharge Plan Disposition Patient Disposition: Still a Patient Condition: Good Prescriptions Prescriptions: No Action polyethylene glycol 3350 [Miralax] 17 gram/dose powder 17 g PO DAILY Qty: 510 0RF sennosides [senna] 8.6 mg tablet 8.6 mg PO DAILY Qty: 30 0RF nitrofurantoin monohyd/m-cryst 100 mg capsule 100 mg PO BID 5 Days Qty: 10 0RF Rx Instructions: must administer with a meal/food Referrals Follow up/Referrals: Provider,Referral, [Primary Care Provider] - See instructions Clinical Impressions Clinical Impression: Acute viral syndrome Instructions Patient Instructions: DI for Viral Syndrome Discharge ED Provider: Lawrence Bella I General Adult HPI <Marla Cassidy MD - Last Filed: 06/23/23 06:59> General Chief complaint: Upper Respiratory Infection Stated complaint: sore throat, congestion, diarrhea Time Seen by Provider: 06/23/23 05:59 History of Present Illness HPI narrative: 22-year-old female with no significant past medical history coming into the ED with complaints of viral symptoms. Patient notes that since Wednesday, she has been having fevers, chills, body aches, fatigue, malaise, sore throat, cough, congestion. 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 Patient was asked to come to the ED for COVID testing. Related Data Previous Rx's Medication Instructions Recorded polyethylene glycol 3350 17 17 g PO DAILY #510 grams 11/21/22 gram/dose oral powder (Miralax) sennosides 8.6 mg tablet (senna) 8.6 mg PO DAILY #30 tabs 11/21/22 nitrofurantoin 100 mg PO BID 5 days #10 caps 04/07/23 monohydrate/macrocrystals 100 mg capsule Allergies Allergy/AdvReac Type Severity Reaction Status Date / Time No Known Allergies Allergy Verified 08/22/19 20:27 [facility] <Marla Cassidy MD - Last Filed: 06/23/23 06:59> [facility] Disclaimer: The information contained in this section may have been updated after the patient was seen, as this information can be updated by other users. Surgical History History of tonsillectomy Social History Smoking Status: Never smoker alcohol intake: never current occupational status: student Travel in the last 8 weeks: None <Marla Cassidy MD - Last Filed: 06/23/23 06:59> ROS Obtained: Yes All systems reviewed & no additional complaints except as documented Physical Exam <Marla Cassidy MD - Last Filed: 06/23/23 06:59> General General appearance: alert and in no apparent distress Head Head exam: atraumatic, normocephalic and normal inspection Eye Eye exam: Present normal appearance, PERRL and EOMI; Absent scleral icterus or nystagmus ENT ENT exam: Present normal exam, mucous membranes moist and normal external ear exam Neck Neck exam: Present normal inspection, full ROM and trachea midline Chest Chest inspection: Present normal inspection and symmetric chest wall rise; Absent tenderness Respiratory Respiratory exam: Present normal lung sounds bilaterally; Absent respiratory distress, wheezes or accessory muscle use Cardiovascular Cardiovascular exam: Present regular rate, normal rhythm and normal heart sounds Abdominal Exam Abdominal exam: Present soft; Absent distention, tenderness, guarding, rebound, rigidity, trauma, ascites or pulsatile mass Extremities Exam Extremities exam: Present normal inspection and full ROM; Absent tenderness Back Exam Back exam: Present normal inspection and full ROM; Absent tenderness Neurological Exam Neurological exam: Present alert, oriented X3, normal gait and motor sensory deficit Psychiatric Psychiatric exam: Present normal affect and normal mood Skin Skin exam: Present warm, dry and normal color Medical Decision Making <Marla Cassidy MD - Last Filed: 06/23/23 06:59> Medical Records Medical records reviewed: Yes I reviewed the patient's medical records. Freddy Blood
[2023-06-23 06:39] LABS: Coronavirus 19, PCR Not Detected (NotDetected); Influenza A, PCR Not Detected (NotDetected); Influenza B, PCR Not Detected (NotDetected)
[2023-06-23 08:14] VITALS: BP 110/68; PULSE 75; RESP 15; TEMP 36.7; O2SAT 98
== END 2023-06-23 08:19 | disposition home or self-care (01) ==
PROVIDERS: Emergency Medicine; Emergency Provider Emergency Medicine
DX: J02.9 Acute pharyngitis, unspecified (principal); B34.9 Viral infection, unspecified; R05.9 Cough, unspecified; R53.83 Other fatigue
CPT/HCPCS: 87636; 99283

== ENCOUNTER 2023-07-01 14:40 | Emergency (ER) | payer SELFPAY ==
[2023-07-01 14:50] VITALS: BP 121/78; PULSE 80; RESP 21; TEMP 36.9; O2SAT 96; BMI 16.9
--- NOTE | 2023-07-01 15:00 | EXP.UTC ---
Discharge Plan Disposition Patient Disposition: Home, Self-Care Condition: Good Prescriptions Prescriptions: No Action polyethylene glycol 3350 [Miralax] 17 gram/dose powder 17 g PO DAILY Qty: 510 0RF sennosides [senna] 8.6 mg tablet 8.6 mg PO DAILY Qty: 30 0RF nitrofurantoin monohyd/m-cryst 100 mg capsule 100 mg PO BID 5 Days Qty: 10 0RF Rx Instructions: must administer with a meal/food Referrals Follow up/Referrals: Provider,Referral, MD [Primary Care Provider] - See instructions Activity Restrictions/Add. Instructions Additional Instructions/Restrictions: *Monitor Temp, Over the counter Motrin or Tylenol as directed/as needed Tylenol every 4 hours and Motrin every 6 hours (as long as your family doctor has told you that you can take it) for fever or pain. and straight to ER if unable to lower temp less than 101.0 after medication given *Warm salt water gargles may help to soothe the throat *Throat Lozenges? *Warm fluids like tea with honey may help to soothe the throat? *Sleep elevated *Humidifier/Vaporizer Your throat swab was sent for culture. Those results are typically sent to your primary care. Be sure to follow up in 2-3 days with your family doctor/primary care physician if no improvement so they can review those result and treat if necessary. If you don?t have a primary care doctor, I recommend you get one but in the mean time, you will have to return to a walk in clinic Follow up IMMEDIATELY for new or worsening symptoms or no Noticeable improvement over the next 48-72 hours. 911 for difficulty breathing or swallowing Clinical Impressions Clinical Impression: Viral syndrome Stand Alone Forms Stand Alone Forms: Work/School Release Instructions Patient Instructions: DI for Viral Upper Respiratory Infection -- Adult Discharge ED Provider: Nikki Cowan [facility] HPI General Stated complaint: sore throat and fever Mode of Arrival: Ambulatory Source of Information: Spouse Limitations: No Limitations Time Seen by Provider: 07/01/23 15:00 Description of Symptoms (Recalled from Triage Doc. 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 States that for the last couple of days her throat has been hurting and hurts worse when she swallows and states that last night she had a fever and started with a cough States that today she wasnt feeling any better so she came in to get checked Related Data Previous Rx's Medication Instructions Recorded polyethylene glycol 3350 17 17 g PO DAILY #510 grams 11/21/22 gram/dose oral powder (Miralax) sennosides 8.6 mg tablet (senna) 8.6 mg PO DAILY #30 tabs 11/21/22 nitrofurantoin 100 mg PO BID 5 days #10 caps 04/07/23 monohydrate/macrocrystals 100 mg capsule Allergies Allergy/AdvReac Type Severity Reaction Status Date / Time No Known Allergies Allergy Verified 08/22/19 20:27 Worker's Comp Is this a Worker's Comp case?: No [facility] Disclaimer: The information contained in this section may have been updated after the patient was seen, as this information can be updated by other users. Surgical History History of tonsillectomy Social History Smoking Status: Never smoker alcohol intake: never current occupational status: student Travel in the last 8 weeks: None ROS Obtained: Yes All systems reviewed & no additional complaints except as documented and Yes Systems reviewed as appropriate & no additional complain
[2023-07-01 15:07] LABS: UTC Influenza A Antigen Negative (Negative); UTC Influenza B Antigen Negative (Negative); UTC Strep Screen (Rapid) Negative (Negative)
[2023-07-01 15:12] VITALS: BP 121/78; PULSE 80; RESP 21; TEMP 36.9; O2SAT 96
[2023-07-01 15:30] LABS: Adenovirus,PCR Not Detected (NotDetected); Coronavirus 19, PCR Not Detected (NotDetected); Coronavirus 229E Not Detected (NotDetected); Coronavirus NL63 Not Detected (NotDetected); Coronavirus OC43 Not Detected (NotDetected); Coronovirus HKU1,PCR Not Detected (NotDetected); Human Metapneumovirus Not Detected (NotDetected); Influenza A, PCR Not Detected (NotDetected); Influenza AH1, 2009 Not Detected (NotDetected); Influenza AH1, PCR Not Detected (NotDetected); Influenza AH3,PCR Not Detected (NotDetected); Influenza B, PCR Not Detected (NotDetected); Parainfluenza 1, PCR Not Detected (NotDetected); Parainfluenza 2, PCR Not Detected (NotDetected); Parainfluenza 3, PCR Not Detected (NotDetected); Parainfluenza 4, PCR Not Detected (NotDetected); Respiratory Syncytial Virus Not Detected (NotDetected); Rhinovirus/Enterovirus Not Detected (NotDetected)
== END 2023-07-01 15:23 | disposition home or self-care (01) ==
PROVIDERS: Emergency Provider Nurse Practitioner
DX: R05.9 Cough, unspecified (principal); R07.0 Pain in throat; R50.9 Fever, unspecified; R09.81 Nasal congestion; B34.9 Viral infection, unspecified
CPT/HCPCS: 87632; 87635; 87804; 87880; 99212; 99213; G0463

== ENCOUNTER 2024-03-12 15:42 | Emergency (ER) | payer SELFPAY ==
[2024-03-12 16:04] VITALS: BP 102/69; PULSE 124; RESP 18; TEMP 37; O2SAT 100; BMI 17.4
--- NOTE | 2024-03-12 16:07 | EXP.UTC ---
Discharge Plan Disposition Patient Disposition: Home, Self-Care Condition: Good Prescriptions Prescriptions: New hqesmmkxnjvtaxe-cumtrsedl-PX [Bromfed DM] 2-30-10 mg/5 mL Syrup 5 ml PO Q6H PRN (Reason: Cough) Qty: 240 0RF ondansetron 4 mg Tablet,Disintegrating 4 mg PO Q8H PRN (Reason: Nausea) Qty: 12 0RF Referrals Follow up/Referrals: Grace Vivar APRN [Primary Care Provider] - See instructions Activity Restrictions/Add. Instructions Additional Instructions/Restrictions: Drink plenty of fluids. Take tylenol or ibuprofen for pain or fever. Take the medications as directed. Follow up with your regular doctor. GO TO THE ER FOR ANY WORSENING SYMPTOMS Clinical Impressions Clinical Impression: Acute viral syndrome Stand Alone Forms Stand Alone Forms: Work/School Release Instructions Patient Instructions: DI for Viral Syndrome, Ondansetron Print Language Print Language: Bengali Discharge ED Provider: Ray Wan [facility] [place] HPI General Stated complaint: chills,fever,body aches,headache Time Seen by Provider: 03/12/24 16:03 Related Data Previous Rx's ?Medication ?Instructions ?Recorded vyhxaqylmuyefve-onuqceffmnoktxt-OJ 5 ml PO Q6H PRN Cough #240 mL 03/12/24 2 mg-30 mg-10 mg/5 mL oral syrup (Bromfed DM) ondansetron 4 mg disintegrating 4 mg PO Q8H PRN Nausea #12 tabs 03/12/24 tablet Allergies Allergy/AdvReac Type Severity Reaction Status Date / Time No Known Allergies Allergy Verified 08/22/19 20:27 [facility] Disclaimer: The information contained in this section may have been updated after the patient was seen, as this information can be updated by other users. Surgical History History of tonsillectomy Social History Smoking Status: Never smoker alcohol intake: never current occupational status: student Travel in the last 8 weeks: None ROS Obtained: Yes All systems reviewed & no additional complaints except as documented Constitutional Constitutional: Reports chills and Reports fever(s) Eyes Eyes: Denies eye discharge ENT Ears, Nose, Mouth, and Throat: Reports as per HPI Cardiovascular Cardiovascular: Denies chest pain Respiratory Respiratory: Denies chest congestion and Reports cough Gastrointestinal Gastrointestingal: Reports nausea; Denies abdominal pain, constipation, cramping, diarrhea or vomiting Musculoskeletal Musculoskeletal: Denies arthralgias Integumentary/Breasts Skin/Breast: Denies rash Neurologic Neurologic: Denies paresthesias Physical Exam General General appearance: alert and in no apparent distress Eye Eye exam: Present normal appearance, PERRL and EOMI ENT ENT exam: Present mucous membranes moist and normal external ear exam Expanded ENT Exam External ear exam: Present normal external inspection TM/Canal exam: Bilateral TM: erythema and bulging Nose exam: Absent sinus tenderness Nasal speculum exam: Bilateral: normal Mouth exam: Present normal external inspection; Absent drooling Teeth exam: Present normal inspection Throat exam: Present tonsillar erythema and tonsillomegaly Neck Neck exam: Present normal inspection, full ROM and trachea midline; Absent tenderness, lymphadenopathy or thyromegaly Chest Chest inspection: Present normal inspection and symmetric chest wall rise; Absent tenderness or rash Respiratory Respiratory exam: Present normal lung sounds bilaterally; Absent respiratory distress, wheezes, stridor or accessory muscle use Cardiovascular Cardiovascular exam: Present regular rate, normal rhythm and normal heart sounds Abdominal Exam Abdominal exam: Present soft; Absent distention, tenderness, guarding, rebound or rigidity Extremities Exam Extremities exam: Present normal inspection, full ROM and normal capillary refill; Absent tenderness or calf tenderness Back Exam Back exam: Present normal inspection and f
[2024-03-12 17:00] VITALS: BP 102/69; PULSE 124; RESP 18; TEMP 37; O2SAT 100
== END 2024-03-12 17:01 | disposition home or self-care (01) ==
PROVIDERS: Emergency Provider Nurse Practitioner Family; PCP Nurse Practitioner Family
DX: R51.9 Headache, unspecified (principal); R50.9 Fever, unspecified; B34.9 Viral infection, unspecified
CPT/HCPCS: 99212; 99214; G0463

== ENCOUNTER 2024-08-11 08:57 | Emergency (ER) | payer BC, SELFPAY ==
[2024-08-11 08:58] VITALS: BP 143/95; PULSE 112; PULSE 123; RESP 25; TEMP 36.5; O2SAT 100; BMI 16.9
--- NOTE | 2024-08-11 08:59 | ECG_ITS ---
APPROVED REPORT Exam: Resting ECG HR:161 bpm ECG Measurements Heart Rate 161 AXES [place] 107 P 87 QRSd 89 QRS 16 QT 280 T 42 QTc 369 Conclusion SINUS TACHYCARDIA WITH SHORT [place] INTERVAL POSSIBLE RIGHT VENTRICULAR CONDUCTION DELAY [RSR (QR) IN V1/V2] NONSPECIFIC ST & T-WAVE ABNORMALITY CRITICAL TEST RESULT WARNING: DATA QUALITY MAY AFFECT INTERPRETATION UNCONFIRMED REPORT Electronically signed by : Vandana Alexander, 08/11/2024 10:20:09
[2024-08-11 09:00] VITALS: BP 143/95; PULSE 138; O2SAT 98
--- NOTE | 2024-08-11 09:03 | PC.NURSE ---
dr west at bedside
--- NOTE | 2024-08-11 09:05 | PC.NURSE ---
0903 Pt attached to monitor. Pt appears to be anxious and tremoring, emotional support provided to patient. Pt declines IV insertion at this time.
--- NOTE | 2024-08-11 09:14 | [facility].EDCP ---
Discharge Plan Disposition Patient Disposition: Home, Self-Care Condition: Good Prescriptions Prescriptions: New hydroxyzine HCl 25 mg tablet 25 mg PO Q8H PRN (Reason: itching) Qty: 30 0RF No Action buspirone 10 mg tablet 10 mg PO BID sertraline 50 mg tablet 50 mg PO DAILY Activity Restrictions/Add. Instructions Additional Instructions/Restrictions: Begin taking the hydroxyzine every 8 hours as needed for anxiety. You were prescribed a 10-day supply which will need to be renewed by your PCP if you find this medication to be helpful. Please contact your primary care provider today to inform them of your visit and arrange for a follow-up appointment and referral to psychiatry. Please return to ED if your symptoms worsen, change in location, change in severity, new symptoms develop or if you become concerned for your health. Clinical Impressions Clinical Impression: Acute anxiety, Chest pain in adult Instructions Patient Instructions: Anxiety and Panic Attacks (Alternative Therapy), DI for Anxiety -- Adult Print Language Print Language: Ecuadorean Discharge ED Provider: Vandana Alexander [facility] General Chief Complaint: Chest Pain Stated Complaint: chest pain Time Seen by Provider: 08/11/24 08:58 History of Present Illness HPI narrative: Patient is a 23-year-old female presenting with chest pain. Patient states she has been dealing with significant stress at home and has had increasing anxiety over the past week. Patient states she was started on an antidepressant on Wednesday but does not feel that it is helping. She states that she typically holds in her feelings and stress and she feels like it is all coming out now. Patient states she had an upset stomach this morning and feels chest tightness. She denies known medical problems or illicit drug use. Patient vapes daily but denies using dab pens or illicit substances in the vape. Patient does not drink alcohol. Patient denies suicidal ideation or homicidal ideation. Patient feels safe at home. Patient denies trauma. Patient denies recent URI, headache, shortness of breath, bowel or bladder dysfunction. Related Data Home Medications ?Medication ?Instructions ?Recorded ?Confirmed buspirone 10 mg tablet 10 mg PO BID 08/11/24 08/11/24 sertraline 50 mg tablet 50 mg PO DAILY 08/11/24 08/11/24 Previous Rx's ?Medication ?Instructions ?Recorded hydroxyzine HCl 25 mg tablet 25 mg PO Q8H PRN itching #30 tabs 08/11/24 Allergies Allergy/AdvReac Type Severity Reaction Status Date / Time No Known Allergies Allergy Verified 08/22/19 20:27 [facility] Disclaimer: The information contained in this section may have been updated after the patient was seen, as this information can be updated by other users. Surgical History History of tonsillectomy Social History Smoking Status: Current some day smoker alcohol intake: never current occupational status: student Travel in the last 8 weeks: None Other Medical History Have you received the Flu Vaccine for this season: No Have you received the Pneumonia Vaccine: No ROS Obtained: Yes All systems reviewed & no additional complaints except as documented Physical Exam General General appearance: alert, anxious and in distress Head Head exam: atraumatic Eye Eye exam: Present EOMI; Absent scleral icterus ENT ENT exam: Present normal exam Neck Neck exam: Present full ROM Expanded Neck Exam Neck exam focused ED: Absent JVD Chest Chest inspection: Present symmetric chest wall rise Respiratory Respiratory exam: Present normal lung sounds bilaterally Cardiovascular Cardiovascular exam: Present normal rhythm, tachycardia and normal heart sounds Abdominal Exam Abdominal exam: Present soft; Absent distention or tenderness Extremities Exam Extremities exam: Present full ROM; Absent edema Back Exam Back exam: Present full ROM Neurological Exam Neurological exam: Present alert and oriented X3 Psychiatric Psychiatric exam: Present normal affect and anxious (tremulous); Absent homicidal ideation or suicidal ideation Skin Skin exam: Present warm and dry HEART Score HEART Score HEART Score assessment performed?: No Critical Care Critical Care Time Critical Care Time: No Medical Decision Making Medical Records Medical records reviewed: Yes I reviewed the patient's medical records. Freddy Inquiry Pt receiving controlled substance: No Vital Signs Vital Signs: 08/11/24 08:58 08/11/24 08:58 08/11/24 09:00 Temperature 97.7 F Temperature Source Oral Pulse Rate 138 H Pulse Rate [Right Radial] 112 H Pulse Rate [Right] 123 H Respiratory Rate 25 H Blood Pressure 143/95 H Blood Pressure [Right Arm] 143/95 H Blood Pressure Mean [Right Arm] 111 Blood Pressure Source Blood Pressure Source [Right Arm] Automatic Cuff Blood Pressure Position 02 Sat by Pulse Oximetry 100 98 Oxygen Delivery Method Room Air 08/11/24 09:16 08/11/24 09:39 08/11/24 10:00 Temperature 98.3 F Temperature Source Oral Pulse Rate 122 H 85 Pulse Rate [Right Radial] Pulse Rate [Right] Respiratory Rate 16 28 H Blood Pressure 138/98 H 115/84 Blood Pressure [Right Arm] Blood Pressure Mean [Right Arm] Blood Pressure Source Automatic Cuff Blood Pressure Source [Right Arm] Blood Pressure Position Sitting 02 Sat by Pulse Oximetry 100 Oxygen Delivery Method Room Air Room Air Lab Data Lab results reviewed: Yes I reviewed the patient's lab results. Labs: Lab Results 08/11/24 09:35: Urine HCG, Qual Negative, Urine Opiates Screen Negative, Urine Methadone Screen Negative, Ur Barbituates Screen Negative, Ur Phencyclidine Scrn Negative, Ur Amphetamines Screen Negative, U Benzodiazepines Scrn Negative, Urine Cocaine Screen Negative, U Marijuana (THC) Screen Negative Response Orders (Tests/Meds): ED MEDICATIONS Generic Name Dose Route Start Last Admin Trade Name Freq PRN Reason Stop Dose Admin Ondansetron HCl 4 mg 08/11/24 09:13 08/11/24 09:18 Ondansetron 4mg Odt SL 09/10/24 09:12 4 mg ONCE PRN Administration nausea Discontinued Medications Generic Name Dose Route Start Last Admin Trade Name Freq PRN Reason Stop Dose Admin Lorazepam 0.5 mg 08/11/24 09:13 08/11/24 09:18 Lorazepam 0.5mg Tablet PO 08/11/24 09:14 0.5 mg ONCE ONE Administration ORDERS Category Date Time Status UDS [Drug Screen,Urine] Stat Lab 08/11/24 09:35 Completed Urine , HCG Qual. Stat Lab 08/11/24 09:35 Completed ECG Data Tracing #1: ECG Narrative: Sinus tachycardia with a rate of 161. No QTc prolongation, no significant ST elevation/depression or evidence of acute ischemia. MI interval 107, no evidence of delta waves. Tracing #2: ECG Narrative: Sinus rhythm with a rate of 86, no MI shortening, no QTc prolongation, no significant ST elevation/depression or evidence of acute ischemia. MDM Narrative Medical Decision Narrative: In summary, this is a 23-year-old female presenting with anxiety and chest pain. Differential diagnosis includes but is not limited to, acute anxiety attack, pericarditis, ACS, URI, among others. Patient has no cardiac risk factors, no upper respiratory symptoms in the setting of severe anxiety and initiation of buspirone. Initial EKG performed and significant for sinus tachycardia. Nursing staff noted patient to be tremulous and severely anxious during patient's EKG. I had a discussion with the patient with regards to her symptoms and how we would evaluate her today. We discussed starting her evaluation by treating her anxiety with Ativan and Zofran. Patient ultimately in agreement with this plan. During our conversation, patient's heart rate had returned to a normal level and averaged about 80 bpm. Patient's physical exam was otherwise unremarkable. Urine and UDS performed, both of which were negative. Approximately 20 minutes after taking the medication, patient states her symptoms had resolved. We discussed the low utility in performing laboratory evaluation at this time. I did request that we repeat her EKG, to which she was in agreement. Patient's repeat EKG demonstrated the resolution of her tachycardia, normalization of her MI interval and continued to be negative for QTc prolongation or evidence of acute ischemia. Patient observed for an additional 30 minutes with no recurrence of her chest pain. We discussed prescription of hydroxyzine for and as needed anxiety medication. I informed her that she will need to follow-up with her PCP for continuation of this medication as I am only prescribing her a 10-day course. Patient was agreement with this plan. Patient has ambulated without difficulty and tolerated oral intake. Patient in agreement with plan. Patient stable for discharge at this time. Vandana lAexander MD PGY-3, Emergency Medicine
[2024-08-11 09:16] VITALS: PULSE 122
[2024-08-11] MEDS: LORazepam 0.5MG TABLET 0.5 MG PO (09:18)
[2024-08-11] MEDS: ONDANSETRON 4MG ODT 4 MG SL (09:18)
--- NOTE | 2024-08-11 09:35 | PC.NURSE ---
Obtained clean catch urine sample from pt and sent to lab.
--- NOTE | 2024-08-11 09:38 | PC.NURSE ---
0930 pt ambulated to the bathroom with a steady gate and provides urine sample.
[2024-08-11 09:39] VITALS: BP 138/98; PULSE 85; RESP 16; TEMP 36.8; O2SAT 100
[2024-08-11 09:52] LABS: Urine Pregnancy, HCG Qual. Negative (Negative)
[2024-08-11 10:00] VITALS: BP 115/84; RESP 28
[2024-08-11 10:01] LABS: Amphetamine/Metha Screen,Urine Negative ng/ml (<1000)
[2024-08-11 10:02] LABS: Barbiturates Screen,Urine Negative ng/ml (<200); Benzodiazepines Screen,Urine Negative ng/ml (<200)
[2024-08-11 10:03] LABS: Cannabinoid Screen,Urine Negative ng/ml (<50); Cocaine Screen,Urine Negative ng/ml (<300)
[2024-08-11 10:04] LABS: Methadone Screen,Urine Negative ng/ml (<300)
[2024-08-11 10:05] LABS: Opiate Screen,Urine Negative ng/ml (<300); Phencyclidine Screen,Urine Negative ng/ml (<25)
--- NOTE | 2024-08-11 10:23 | PC.NURSE ---
dr west at bedside to update pt and
[2024-08-11 10:31] VITALS: BP 115/80; PULSE 72; RESP 16; TEMP 36.7; O2SAT 98
== END 2024-08-11 10:31 | disposition home or self-care (01) ==
PROVIDERS: Emergency Provider Student in an Organized Health Care Education/Training Program
DX: R07.9 Chest pain, unspecified (principal); F41.9 Anxiety disorder, unspecified
CPT/HCPCS: 80307; 81025; 93005; 99283; Q0162